=== PATIENT | male | born 1945 | race Caucasian/White ===

== ENCOUNTER 2020-10-13 06:37 | Outpatient (CLI) | payer MEDICARE, OTHER ==
[2020-10-13 13:56] LABS: Hemoglobin 12.3 g/dL (14.0-18.0); Mean Corpuscular Hemoglobin 30.3 PG (27.0-33.0); Mean Corpuscular Volume 91.9 fl (80.0-100.0); Mean Platelet Volume 9.6 fl (7.4-10.4); Platelet Count 263 10x3/uL (130-400); RBC Distribution Width 14.4 % (11.5-14.5); Red Blood Cell (RBC) Count 4.06 10x6/uL (4.40-5.80); White Blood Cell (WBC) Count 7.3 10x3/uL (4.5-11.0)
[2020-10-13 14:14] LABS: Anion Gap 14 mmol/L (10-20); BUN (Urea Nitrogen) 16 mg/dL (8.4-25.7); Calc. Creatinine Clearance 0 mL/min (70-130); Calcium 9.4 mg/dL (7.8-10.44); Carbon Dioxide 26 mmol/L (23-31); Chloride 105 mmol/L (98-107); Estimated GFR-MDRD 59; Glucose 96 mg/dL (83-110); PTT 26.8 sec (22.0-33.0); Potassium 4.9 mmol/L (3.5-5.1); Prothrombin Time 10.5 sec (9.5-12.1); Sodium 140 mmol/L (136-145)
[2020-10-13 22:57] LABS: SARS-CoV-2 MS2 Positive; SARS-CoV-2 N Gene Negative; SARS-CoV-2 S Gene Negative; SARS-CoV-2 by NAA Not Detected (NotDetected); SARS-CoV-2 orf1ab Negative
== END 2020-10-13 06:38 | disposition home or self-care (01) ==
LOC: LABBT 06:37
PROVIDERS: ATTEND Urology
DX: Z01.818 Encounter for other preprocedural examination (principal); N35.912 Unspecified bulbous urethral stricture, male; Z20.828 Contact with and (suspected) exposure to other viral communicable diseases
CPT/HCPCS: 80048; 81001; 85027; 85610; 85730; 87086; U0003; 87635

== ENCOUNTER 2020-10-18 10:29 | Day surgery (SDC) | payer MEDICARE, OTHER ==
[2020-10-17 10:15] VITALS: BMI 26.4
[~2020-10-18 10:29] MED LIST: Dexamethasone 20 MG/5 ML VIAL ONE; Ketorolac Tromethamine 30 MG/ML VIAL ONE; Lidocaine 1% PF 5 ML VIAL ONE; Ondansetron PF 4 MG/2 ML Vial ONE; PHENYLEPHRINE-NS 100 MCG/ML 10 ML SYRINGE ONE; PROPOFOL 200 MG/20 ML VIAL ONE
[2020-10-18] MEDS ORDERED: Iothalamate Meglumine 60% 50 ML VIAL FS ONE ×2 (11:55→13:24)
[2020-10-18] MEDS ORDERED: Levofloxacin 500 mg/D5W 100 ml Premix Bag ONE (12:25)
[2020-10-18] MEDS ORDERED: Fentanyl 100 MCG/2 ML VIAL ONE (13:20)
--- NOTE | 2020-10-18 14:22 | RAD ---
XR IVP Retrograde History: Stent placement Comparison: None. Findings: Multiple fluoroscopic images were obtained. Retrograde ureterogram along with suprapubic pl acement of a catheter with urethral stent through a stricture. Impression: Fluoroscopy for procedure purposes.
[2020-10-18] MEDS ORDERED: Phenazopyridine HCl 100 MG TAB ONE (14:59)
[2020-10-18] MEDS ORDERED: Oxybutynin 5 MG TAB ONE (14:59)
[2020-10-18] MEDS ORDERED: Bupivacaine 0.25% HCL 30 ML VIAL ONE (15:16)
--- NOTE | 2020-10-18 20:09 | OP ---
DATE OF PROCEDURE: 10/18/2020 PREOPERATIVE DIAGNOSIS: Urethral stricture. POSTOPERATIVE DIAGNOSIS: 2 cm bulbar urethral stricture. ANESTHESIA: General. COMPLICATIONS: None. ESTIMATED BLOOD LOSS: Minimal. PROCEDURES PERFORMED: Retrograde cystoscopy, retrograde urethrogram, percutaneous access to the bladder with antegrade cystoscopy and urethrogram, cystogram, 18-[place] Councill tip suprapubic tube placement. DESCRIPTION OF PROCEDURE: After informed consent, the patient was taken to the operating room, transferred to the table under his own power. Anesthesia was established. Time-out was performed showing the correct patient, site, and procedure. Preoperative antibiotics were administered. He was prepped and draped in the supine position, slightly bumped up on his left side with his right knee flared outward somewhat. I began by performing a retrograde urethrogram showing good filling of the urethra down to the bulbar urethra, where there was a tight stricture with no contrast passing. The flexible cystoscope was then inserted and guided down to the same spot, where I was unable to identify any lumen. I filled his bladder with contrast and then continued to fill until it seemed to reach capacity about 500 mL through his Katina suprapubic tube. A wire was then passed through the Katina tube into his bladder and the Katina tube removed. I then passed a NephroMax balloon over the wire with the tip of the balloon in the bladder. This was inflated and the access sheath passed over this with the tip of the access sheath into the bladder. The flexible cystoscope was then inserted in the bladder systematically examined noting no mucosal abnormalities. The bladder neck is widely patent with no evidence of recurrence of bladder neck contracture. The scope was then passed into the bulbar urethra, which is widely dilated. I reached a point where there is complete obliteration of the urethra with no lumen visible. I performed an antegrade urethrogram through the scope and a retrograde urethrogram at the same time, delineating the length of the stricture which is about 2 cm in the bulbar urethra. The remainder of the prostate and bladder are normal. The scope was then withdrawn leaving a wire in place. The access sheath was withdrawn and an 18- [place] Councill tip catheter passed over the wire into the bladder with 10 mL instilled in the balloon. The wire was then removed and the tube connected to bag drainage. This was sutured in place and a single chromic suture used to close the incision made for the access sheath. This was then dressed with gauze and tape. He was awoken from anesthesia, transferred back to his hospital bed and taken to PACU in stable condition, where he will discharge home upon recovery with plans for us to proceed with likely end-to-end primary anastomosis urethroplasty in the coming weeks. Job ID: [id number] MTDD
== END 2020-10-18 16:20 | disposition home or self-care (01) ==
LOC: SDC 10:29
PROVIDERS: ATTEND Urology
PROC: 0T9B00Z Drainage of Bladder with Drainage Device, Open Approach (ICD-10-PCS; principal; 2020-10-18)
PROC: BT1BZZZ Fluoroscopy of Bladder and Urethra (ICD-10-PCS; 2020-10-18)
DX: N35.912 Unspecified bulbous urethral stricture, male (principal); E78.5 Hyperlipidemia, unspecified; I10 Essential (primary) hypertension; M19.90 Unspecified osteoarthritis, unspecified site; F43.10 Post-traumatic stress disorder, unspecified; N40.1 Benign prostatic hyperplasia with lower urinary tract symptoms; R33.8 Other retention of urine; Z79.02 Long term (current) use of antithrombotics/antiplatelets; Z79.82 Long term (current) use of aspirin; Z79.899 Other long term (current) drug therapy; Z86.73 Personal history of transient ischemic attack (TIA), and cerebral infarction without residual deficits; Z95.1 Presence of aortocoronary bypass graft
CPT/HCPCS: 74420; J1100; J1885; J1956; J2405; J2704; J3010; S0020

== ENCOUNTER 2020-11-03 06:52 | Outpatient (CLI) | payer MEDICARE, OTHER ==
[2020-11-03 15:59] LABS: Hemoglobin 12.4 g/dL (14.0-18.0); Mean Corpuscular HGB CONC 33.2 G/DL (32.0-36.0); Mean Corpuscular Hemoglobin 30.7 PG (27.0-33.0); Mean Corpuscular Volume 92.3 fl (80.0-100.0); Mean Platelet Volume 9.4 fl (7.4-10.4); Platelet Count 262 10x3/uL (130-400); RBC Distribution Width 14.2 % (11.5-14.5); Red Blood Cell (RBC) Count 4.04 10x6/uL (4.40-5.80); White Blood Cell (WBC) Count 8.2 10x3/uL (4.5-11.0)
[2020-11-03 16:35] LABS: Anion Gap 14 mmol/L (10-20); BUN (Urea Nitrogen) 16 mg/dL (8.4-25.7); Calc. Creatinine Clearance 0 mL/min (70-130); Calcium 9.4 mg/dL (7.8-10.44); Carbon Dioxide 27 mmol/L (23-31); Chloride 105 mmol/L (98-107); Glucose 100 mg/dL (83-110); Potassium 4.1 mmol/L (3.5-5.1); Sodium 142 mmol/L (136-145)
[2020-11-04 03:06] LABS: SARS-CoV-2 MS2 Positive; SARS-CoV-2 N Gene Negative; SARS-CoV-2 S Gene Negative; SARS-CoV-2 by NAA Not Detected (NotDetected); SARS-CoV-2 orf1ab Negative
== END 2020-11-03 06:53 | disposition home or self-care (01) ==
LOC: LABBT 06:52
PROVIDERS: ATTEND Urology
DX: Z01.812 Encounter for preprocedural laboratory examination (principal); Z20.828 Contact with and (suspected) exposure to other viral communicable diseases; N35.912 Unspecified bulbous urethral stricture, male
CPT/HCPCS: 80048; 85027; 87086; U0003; 87635

== ENCOUNTER 2020-11-08 01:18 | Emergency (ER) | payer MEDICARE, OTHER ==
[2020-11-08 03:10] LABS: Bilirubin Negative (Negative); Blood, Urine 2+ (Negative); Clarity Turbid (Clear); Glucose, Urine (Dipstick) Normal (Negative); Ketone, Urine Negative (Negative); Leukocyte 500 Leu/uL (Negative); Nitrite Negative (Negative); Protein, Urine (Dipstick) 30 mg/dL (Neg-Trace); RBC/HPF Greater than 50 HPF (0-3); Squamous Epithelial None Seen HPF (0-3); Urobilinogen Normal mg/dL (Less than 2); WBC/HPF Greater than 50 HPF (0-3); pH, Urine 6.5 (5.0-9.0)
[2020-11-08 03:12] LABS: Bacteria/HPF 2+ HPF (None Seen)
--- NOTE | 2020-11-08 19:41 | OP ---
DATE OF PROCEDURE: 11/08/2020 PREOPERATIVE DIAGNOSIS: Bulbar urethral stricture. POSTOPERATIVE DIAGNOSIS: Bulbar urethral stricture. PROCEDURE: End-to-end anastomotic urethroplasty, change of suprapubic tube. ANESTHESIA: General. COMPLICATIONS: None. ESTIMATED BLOOD LOSS: 100 mL. SPECIMEN: Urethral stricture. DESCRIPTION OF PROCEDURE: After informed consent, the patient was taken to the operating room, transferred to the table under his own power. Anesthesia was established. A time-out was performed showing the correct patient, site, procedure. Preoperative antibiotics were administered. He was prepped and draped in the lithotomy position. I began by exchanging the suprapubic tube with an 18-[place] Don catheter. 10 mL were instilled in the balloon and clear urine resulted. I then made a midline perineal incision over the palpable scarred urethra. This was carried down to muscle with electrocautery and then muscle opened sharply with scissors. The urethra was circumferentially dissected proximal to the scarred area. This allowed dissection through the scarred urethra. I was able to dissect into the distal urethra for more easily. The urethra was transected distal to the scarred area, which easily calibrated to 26-Guamanian. Stay sutures were placed and further dissection was carried distally to allow a tension-free anastomosis. The scarred bulbar urethra was then completely transected and the resultant posterior urethra also calibrated easily to 26-Guamanian. This stay sutures were placed and the posterior urethra mobilized again to allow a tension-free anastomosis. The posterior urethra was spatulated ventrally and distal urethra dorsally. The dorsal anastomosis was performed in an interrupted fashion with 4-0 PDS suture in a single layer. The anterior mucosa was then closed, first on the left side in an interrupted fashion with 4-0 PDS. An 18-[place] Dno catheter was then easily passed and it was visually confirmed to be in proper position. 10 mL were instilled in this balloon and a Don plug was placed. I then completed closing the anterior mucosa with interrupted PDS. Finally, the bulbospongiosus was closed in an interrupted fashion still with 4-0 PDS. The wound was copiously irrigated before closing muscle and a deep layer with Vicryl suture. I then approximated the skin edges again with Vicryl before using 4-0 Monocryl to run a subcuticular stitch. This was then dressed with Dermabond. The patient was then awoken from anesthesia, transferred back to his hospital bed and taken to PACU in stable condition, where he will discharge home upon recovery with plans to follow up on the for Don catheter removal. Job ID: [id number]
== END 2020-11-08 03:05 | disposition home or self-care (01) ==
LOC: ERS 01:18
DX: T83.098A Other mechanical complication of other urinary catheter, initial encounter (principal); N40.0 Benign prostatic hyperplasia without lower urinary tract symptoms; E78.6 Lipoprotein deficiency; I25.10 Atherosclerotic heart disease of native coronary artery without angina pectoris; I10 Essential (primary) hypertension; Z86.73 Personal history of transient ischemic attack (TIA), and cerebral infarction without residual deficits
CPT/HCPCS: 51705; 81003; 81015

== ENCOUNTER 2020-11-08 09:32 | Day surgery (SDC) | payer MEDICARE ==
[2020-11-07 12:33] VITALS: BMI 26.4
[2020-11-08] MEDS ORDERED: PROPOFOL 200 MG/20 ML VIAL ONE (10:38)
[2020-11-08] MEDS ORDERED: Lidocaine 1% PF 5 ML VIAL ONE (10:38)
[2020-11-08] MEDS ORDERED: Succinylcholine 200 MG/10 ml SYRINGE FS ONE (10:38)
[2020-11-08] MEDS ORDERED: Dexamethasone 20 MG/5 ML VIAL ONE (10:38)
[2020-11-08] MEDS ORDERED: Ondansetron PF 4 MG/2 ML Vial ONE (10:38)
[2020-11-08] MEDS ORDERED: Fentanyl 100 MCG/2 ML VIAL ONE ×2 (12:15→14:59)
[2020-11-08] MEDS ORDERED: Lidocaine 1% w/Epinephrine 1:100K 20 ML VIAL ONE (12:17)
[2020-11-08] MEDS ORDERED: Bupivacaine PF 0.5% 30 ML VIAL ONE (12:17)
[2020-11-08] MEDS ORDERED: Ketorolac Tromethamine 30 MG/ML VIAL ONE (15:52)
== END 2020-11-08 17:45 | disposition home or self-care (01) ==
LOC: SDC 09:32
PROVIDERS: ATTEND Urology
PROC: 0T2BX0Z Change Drainage Device in Bladder, External Approach (ICD-10-PCS; principal; 2020-11-08)
DX: N35.912 Unspecified bulbous urethral stricture, male (principal); I25.10 Atherosclerotic heart disease of native coronary artery without angina pectoris; Z79.02 Long term (current) use of antithrombotics/antiplatelets; Z79.82 Long term (current) use of aspirin; Z79.899 Other long term (current) drug therapy; Z86.73 Personal history of transient ischemic attack (TIA), and cerebral infarction without residual deficits; Z95.1 Presence of aortocoronary bypass graft
CPT/HCPCS: 88305; J0690; J1100; J1885; J2405; J2704; J3010; S0020